=== PATIENT | male | born 1975 | race African-American/Black ===

== ENCOUNTER 2017-09-16 18:16 | Emergency (ER) | payer MEDICAID ==
[~2017-09-16] VITALS: Ht 182.9 cm; Wt 84.1 kg
[~2017-09-16 18:16] MED LIST: DIVA-78 PO; LITH300C3 PO; RISP3 PO
[2017-09-16] MEDS ORDERED: KETOROLAC TROMETHAMINE 30 MG/ML VIAL IM ONE (19:00)
[2017-09-16 19:29] VITALS: BP 137/82
== END 2017-09-16 19:34 | disposition home or self-care (01) ==
LOC: EMS 18:16
DX: T23.162A Burn of first degree of back of left hand, initial encounter (principal); T21.12XA Burn of first degree of abdominal wall, initial encounter; T31.0 Burns involving less than 10% of body surface; F17.210 Nicotine dependence, cigarettes, uncomplicated; F12.10 Cannabis abuse, uncomplicated; X12.XXXA Contact with other hot fluids, initial encounter; Y93.89 Activity, other specified; Y92.89 Other specified places as the place of occurrence of the external cause; Y99.8 Other external cause status
CPT/HCPCS: 96372; 99283; J1885

== ENCOUNTER 2017-10-10 02:18 | Emergency (ER) | payer MEDICAID | END 2017-10-10 03:01 | disposition left against medical advice (07) | LOC: EMS 02:19 | DX: Z00.8 Encounter for other general examination (principal); Z53.21 Procedure and treatment not carried out due to patient leaving prior to being seen by health care provider ==

== ENCOUNTER 2017-11-08 11:14 | Emergency (ER) | payer MEDICAID ==
[~2017-11-08] VITALS: Ht 182.9 cm; Wt 79.5 kg
[2017-11-08 12:32] LABS: BASOPHILS % (AUTO) 0.5 % (0.0-2.0); EOSINOPHILS % (AUTO) 0.6 % (1.0-6.0); HEMATOCRIT 37.1 % (41-53); HEMOGLOBIN 12.2 g/dL (13.5-17.5); LYMPHOCYTES # (AUTO) 2.8 K/uL (1.0-4.8); LYMPHOCYTES % (AUTO) 29.5 % (22.0-44.0); MEAN CORPUSCULAR HEMOGLOBIN 31.3 pg (26.0-34.0); MEAN CORPUSCULAR HGB CONC 32.8 G/dL (31.0-37.0); MEAN CORPUSCULAR VOLUME 95 fL (80-100); MONOCYTES # (AUTO) 0.6 K/uL (0.1-1.0); MONOCYTES % (AUTO) 5.9 % (2.0-9.0); NEUTROPHILS % (AUTO) 63.5 % (40.0-70.0); PLATELET COUNT (AUTO) 438 K/uL (150-450); RED BLOOD CELL COUNT(AUTO) 3.89 MIL/uL (4.50-5.90); RED CELL DISTRIBUTION WIDTH 14.8 % (11.5-14.5)
[2017-11-08 12:44] LABS: ANION GAP 9 mmol/L (8-16); CALCIUM, TOTAL 8.9 mg/dL (8.8-10.5); CARBON DIOXIDE 29 mmol/L (22-29); CHLORIDE 103 mmol/L (98-107); CREATININE 1.09 mg/dL (0.60-1.30); GLOMERULAR FILTR. RATE CALC > 60 mL/min (>60); GLUCOSE,RANDOM 141 mg/dL (70-110); POTASSIUM 3.3 mmol/L (3.5-5.1); SODIUM SERUM 141 mmol/L (136-145); UREA NITROGEN, BLOOD 7 mg/dL (7-18)
[2017-11-08 12:54] LABS: ALANINE AMINOTRANSFERASE 45 U/L (12-78); ALKALINE PHOSPHATASE 116 U/L (46-116); ASPARTATE AMINOTRANSFERASE 28 U/L (15-37); BILIRUBIN,TOTAL 0.3 mg/dL (0.1-1.0); TOTAL PROTEIN, SERUM 7.2 g/dL (6.4-8.2)
[2017-11-08 14:41] VITALS: BP 98/71
[2017-11-08] MEDS ORDERED: POTASSIUM CHLORIDE 10% 40 MEQ/30 ML LIQUID UDCUP PO ONE (15:00)
[2017-11-08 15:41] LABS: AMPHET/METH SCREEN,URINE NEGATIVE (NEGATIVE); BARBITURATE SCREEN, URINE NEGATIVE (NEGATIVE); BENZODIAZEPINES SCREEN,URINE NEGATIVE (NEGATIVE); CANNABINOID SCREEN,URINE POSITIVE (NEGATIVE); COCAINE SCREEN,URINE NEGATIVE (NEGATIVE); METHADONE SCREEN, URINE NEGATIVE (NEGATIVE); OPIATE SCREEN,URINE NEGATIVE (NEGATIVE)
[2017-11-08 15:42] LABS: PHENCYCLIDINE SCREEN,URINE NEGATIVE (NEGATIVE)
== END 2017-11-08 15:14 | disposition home or self-care (01) ==
LOC: EMS 11:16
DX: F69 Unspecified disorder of adult personality and behavior (principal); E87.6 Hypokalemia; F20.9 Schizophrenia, unspecified; F12.90 Cannabis use, unspecified, uncomplicated; F17.210 Nicotine dependence, cigarettes, uncomplicated; Z98.890 Other specified postprocedural states; Z88.1 Allergy status to other antibiotic agents; Z91.14 Patient's other noncompliance with medication regimen; Z79.899 Other long term (current) drug therapy
CPT/HCPCS: 36415; 80053; 80307; 85025; 99285; 99406; G0480

== ENCOUNTER 2020-12-10 08:48 | Emergency (ER) | payer MEDICAID ==
[~2020-12-10] VITALS: Ht 182.9 cm; Wt 70.0 kg
[2020-12-10 08:53] VITALS: BP 134/86
[2020-12-10] MEDS ORDERED: IBUPROFEN 600 MG TABLET PO ONE (09:30)
== END 2020-12-10 10:49 | disposition home or self-care (01) ==
LOC: EMS 08:52
DX: S82.141A Displaced bicondylar fracture of right tibia, initial encounter for closed fracture (principal); V49.9XXA Car occupant (driver) (passenger) injured in unspecified traffic accident, initial encounter; Y93.89 Activity, other specified; Y92.488 Other paved roadways as the place of occurrence of the external cause; Y99.8 Other external cause status
CPT/HCPCS: 99284; 73562-TC; 73610-TC; Z7502; Z7610

== ENCOUNTER 2021-05-05 15:44 | Inpatient (IN) | payer MEDICAID ==
[~2021-05-05] VITALS: Ht 185.4 cm; Wt 70.0 kg
[2021-05-05] MEDS ORDERED: PNEUMOCOCCAL VACCINE POLYVALENT 0.5 ML VIAL [PPSV23] IM. ONE (18:45)
[2021-05-05] MEDS ORDERED: ZOLPIDEM TARTRATE 10 MG TABLET PO PRN (18:45)
[2021-05-05] MEDS ORDERED: INFLUENZA VIRUS VACCINE QVS 2021-22 (6MO+)/PF 60 MCG/0.5 ML SYRINGE IM. ONE (19:45)
[2021-05-06] MEDS: LORazepam 2 MG TABLET PO PRN ×4 (02:53→21:08)
[2021-05-06] MEDS ORDERED: DOCUSATE SODIUM 100 MG CAPSULE PO PRN (06:00)
[2021-05-06] MEDS ORDERED: CloNIDine HCL 0.1 MG TABLET PO PRN (06:00)
[2021-05-06] MEDS ORDERED: ACETAMINOPHEN 325 MG TABLET PO PRN (06:00)
[2021-05-06] MEDS ORDERED: BACITRACIN 28 GM OINTMENT TP PRN (06:00)
[2021-05-06] MEDS ORDERED: PETROLATUM,WHITE 28 GM JELLY TP PRN (06:00)
[2021-05-06] MEDS ORDERED: IBUPROFEN 600 MG TABLET PO PRN (06:00)
[2021-05-06] MEDS ORDERED: LOPERAMIDE HCL 2 MG CAPSULE PO PRN (06:00)
[2021-05-06] MEDS ORDERED: OMEPRAZOLE 20 MG CAPSULE PO PRN (06:00)
[2021-05-06] MEDS ORDERED: ONDANSETRON HCL 4 MG TABLET PO PRN (06:00)
[2021-05-06] MEDS ORDERED: ALBUTEROL SULFATE HFA 90 MCG/PUFF 8 GM INHALER IH PRN (06:00)
[2021-05-06] MEDS ORDERED: MAG HYDROX/AL HYDROX/SIMETH ES 30 ML SUSPENSION UDCUP PO PRN (06:00)
[2021-05-06] MEDS ORDERED: MAGNESIUM HYDROXIDE SUSPENSION 30 ML UDCUP PO PRN (06:00)
[2021-05-06] MEDS ORDERED: BENZOCAINE/MENTHOL LOZENGE PO PRN (06:00)
[2021-05-06] MEDS: HALOPERIDOL 5 MG TABLET PO PRN ×2 (08:15→16:35)
[2021-05-06 10:05] VITALS: BP 143/94
[2021-05-06 16:12] VITALS: BP 137/84
[2021-05-06] MEDS: LITHIUM CARBONATE 300 MG CAPSULE PO SCH (16:35)
[2021-05-06] MEDS: RisperiDONE 3 MG TABLET PO SCH (16:35)
[2021-05-06] MEDS: DIVALPROEX SODIUM 500 MG DR TABLET PO SCH (16:35)
[2021-05-07 04:21] VITALS: BP 112/73
[2021-05-07] MEDS: LORazepam 2 MG TABLET PO PRN ×4 (04:32→20:27)
[2021-05-07] MEDS: HALOPERIDOL 5 MG TABLET PO PRN ×4 (04:33→20:27)
[2021-05-07 08:06] VITALS: BP 138/86
[2021-05-07] MEDS: LITHIUM CARBONATE 300 MG CAPSULE PO SCH ×2 (08:37→16:20)
[2021-05-07] MEDS: RisperiDONE 3 MG TABLET PO SCH ×2 (08:37→16:20)
[2021-05-07] MEDS: DIVALPROEX SODIUM 500 MG DR TABLET PO SCH ×2 (08:37→16:20)
[2021-05-07 16:23] VITALS: BP 145/104
[2021-05-07 18:47] VITALS: BP 129/81
[2021-05-08 00:26] VITALS: BP 134/84
[2021-05-08] MEDS: RisperiDONE 3 MG TABLET PO SCH ×2 (08:31→17:00)
[2021-05-08] MEDS: DIVALPROEX SODIUM 500 MG DR TABLET PO SCH ×2 (08:31→17:00)
[2021-05-08] MEDS: LITHIUM CARBONATE 300 MG CAPSULE PO SCH ×2 (08:31→17:00)
[2021-05-08 08:32] VITALS: BP 140/76
[2021-05-08 16:15] VITALS: BP 115/83
[2021-05-09 03:27] VITALS: BP 110/74
[2021-05-09 08:36] VITALS: BP 122/68
[2021-05-09] MEDS: LITHIUM CARBONATE 300 MG CAPSULE PO SCH ×2 (08:42→16:58)
[2021-05-09] MEDS: RisperiDONE 3 MG TABLET PO SCH ×2 (08:42→16:58)
[2021-05-09] MEDS: DIVALPROEX SODIUM 500 MG DR TABLET PO SCH ×2 (08:42→16:58)
[2021-05-09] MEDS: NICOTINE 14 MG/24 HOUR PATCH TD SCH (10:08)
[2021-05-09 16:29] VITALS: BP 116/74
[2021-05-10 05:42] VITALS: BP 118/74
[2021-05-10 07:14] LABS: BASOPHILS % (AUTO) 0.7 % (0.0-2.0); EOSINOPHILS % (AUTO) 2.6 % (1.0-6.0); HEMATOCRIT 41.6 % (41-53); HEMOGLOBIN 13.9 g/dL (13.5-17.5); LYMPHOCYTES # (AUTO) 2.7 K/uL (1.0-4.8); LYMPHOCYTES % (AUTO) 32.5 % (22.0-44.0); MEAN CORPUSCULAR HGB CONC 33.5 G/dL (31.0-37.0); MEAN CORPUSCULAR VOLUME 90 fL (80-100); MONOCYTES # (AUTO) 0.8 K/uL (0.1-1.0); NEUTROPHILS # (AUTO) 4.6 K/uL (1.8-7.7); NEUTROPHILS % (AUTO) 55.2 % (40.0-70.0); PLATELET COUNT (AUTO) 402 K/uL (150-450); RED BLOOD CELL COUNT(AUTO) 4.63 MIL/uL (4.50-5.90); RED CELL DISTRIBUTION WIDTH 14.8 % (11.5-14.5)
[2021-05-10 07:30] LABS: HEMOGLOBIN A1C 5.9 % (3.8-5.6)
[2021-05-10 07:40] LABS: ALANINE AMINOTRANSFERASE 76 U/L (12-78); ALBUMIN 3.5 g/dL (3.4-5.0); ALKALINE PHOSPHATASE 141 U/L (46-116); ANION GAP 11 mmol/L (8-16); ASPARTATE AMINOTRANSFERASE 36 U/L (15-37); BILIRUBIN,TOTAL 0.3 mg/dL (0.1-1.0); CALCIUM, TOTAL 9.8 mg/dL (8.8-10.5); CARBON DIOXIDE 28 mmol/L (22-29); CHLORIDE 104 mmol/L (98-107); CHOL/HDL RATIO 3.6 (4.2-7.3); CHOLESTEROL 148 mg/dL (131-200); CREATININE 1.08 mg/dL (0.60-1.30); FREE T4 (FREE THYROXINE) 0.88 ng/dL (0.76-1.46); GLOMERULAR FILTR. RATE CALC > 60 mL/min (>60); GLUCOSE,RANDOM 89 mg/dL (70-110); HDL CHOLESTEROL 41 mg/dL (40-60); LDL CHOL (CALC.) 88 mg/dL (0-130); POTASSIUM 4.8 mmol/L (3.5-5.1); SODIUM SERUM 143 mmol/L (136-145); THYROID STIMULATING HORMONE 1.93 uIU/mL (0.36-3.74); TOTAL PROTEIN, SERUM 8.4 g/dL (6.4-8.2); TRIGLYCERIDES 95 mg/dL (15-150); UREA NITROGEN, BLOOD 16 mg/dL (7-18)
[2021-05-10 08:33] VITALS: BP 116/70
[2021-05-10] MEDS: LITHIUM CARBONATE 300 MG CAPSULE PO SCH (08:46)
[2021-05-10] MEDS: RisperiDONE 3 MG TABLET PO SCH (08:46)
[2021-05-10] MEDS: DIVALPROEX SODIUM 500 MG DR TABLET PO SCH (08:46)
[2021-05-10] MEDS: NICOTINE 14 MG/24 HOUR PATCH TD SCH (08:58)
[2021-05-10] MEDS ORDERED: RISP3TAB35 PO (13:50)
[2021-05-10] MEDS ORDERED: LITH300C3 PO ×2 (13:50→16:02)
[2021-05-10] MEDS ORDERED: DIVA-112 PO ×2 (13:50→16:02)
[2021-05-10] MEDS ORDERED: RISP3TAB63 PO (16:02)
== END 2021-05-10 14:36 | disposition home or self-care (01) | DRG 750 ==
LOC: B3A 18:39
PROVIDERS: ADMIT Psychiatry & Neurology Psychiatry; ATTEND Psychiatry & Neurology Psychiatry
DX: F20.0 Paranoid schizophrenia (principal); F12.90 Cannabis use, unspecified, uncomplicated; G47.00 Insomnia, unspecified; F17.200 Nicotine dependence, unspecified, uncomplicated; Z56.0 Unemployment, unspecified; Z72.89 Other problems related to lifestyle; Z71.41 Alcohol abuse counseling and surveillance of alcoholic; Z71.51 Drug abuse counseling and surveillance of drug abuser; Z71.6 Tobacco abuse counseling; Z28.21 Immunization not carried out because of patient refusal
CPT/HCPCS: 80053; 80061; 83036; 84439; 84443; 85025

== ENCOUNTER 2021-08-23 16:29 | Inpatient (IN) | payer MEDICAID, OTHER ==
[~2021-08-23] VITALS: Ht 185.4 cm; Wt 82.6 kg
[~2021-08-23 16:29] MED LIST changes: +DIVA-112 PO; -DIVA-78 PO; -RISP3 PO; +RISP3TAB35 PO; +RISP3TAB63 PO
[2021-08-23 17:07] LABS: BASOPHILS % (AUTO) 0.6 % (0.0-2.0); HEMATOCRIT 34.6 % (41-53); HEMOGLOBIN 11.4 g/dL (13.5-17.5); LYMPHOCYTES # (AUTO) 1.5 K/uL (1.0-4.8); LYMPHOCYTES % (AUTO) 20.5 % (22.0-44.0); MEAN CORPUSCULAR HEMOGLOBIN 30.4 pg (26.0-34.0); MEAN CORPUSCULAR VOLUME 92 fL (80-100); MONOCYTES # (AUTO) 0.5 K/uL (0.1-1.0); MONOCYTES % (AUTO) 6.6 % (2.0-9.0); NEUTROPHILS # (AUTO) 4.1 K/uL (1.8-7.7); PLATELET COUNT (AUTO) 329 K/uL (150-450); RED BLOOD CELL COUNT(AUTO) 3.75 MIL/uL (4.50-5.90); RED CELL DISTRIBUTION WIDTH 15.3 % (11.5-14.5)
[2021-08-23 17:24] LABS: ANION GAP 9 mmol/L (8-16); CALCIUM, TOTAL 9.5 mg/dL (8.8-10.5); CARBON DIOXIDE 27 mmol/L (22-29); CHLORIDE 103 mmol/L (98-107); CREATININE 1.06 mg/dL (0.60-1.30); GLOMERULAR FILTR. RATE CALC > 60 mL/min (>60); GLUCOSE,RANDOM 175 mg/dL (70-110); POTASSIUM 3.1 mmol/L (3.5-5.1); SODIUM SERUM 139 mmol/L (136-145); UREA NITROGEN, BLOOD 15 mg/dL (7-18)
[2021-08-23 17:29] LABS: ALANINE AMINOTRANSFERASE 36 U/L (12-78); ALBUMIN 3.7 g/dL (3.4-5.0); ALKALINE PHOSPHATASE 110 U/L (46-116); ASPARTATE AMINOTRANSFERASE 19 U/L (15-37); BILIRUBIN,TOTAL 0.3 mg/dL (0.1-1.0); EOSINOPHILS % (AUTO) 17.3 % (1.0-6.0); TOTAL PROTEIN, SERUM 7.4 g/dL (6.4-8.2)
[2021-08-23] MEDS ORDERED: DiphenhydrAMINE HCL 50 MG/ML VIAL IM ONE (21:45)
[2021-08-23] MEDS ORDERED: HALOPERIDOL LACTATE 5 MG/ML VIAL IM ONE (21:45)
[2021-08-23] MEDS ORDERED: LORazepam 2 MG/ML VIAL IM ONE (21:45)
[2021-08-23] MEDS ORDERED: ZOLPIDEM TARTRATE 10 MG TABLET PO PRN (23:00)
[2021-08-23 23:15] LABS: COVID AG,FIA SOURCE NASAL SWAB
[2021-08-24] MEDS ORDERED: DiphenhydrAMINE HCL 50 MG/ML VIAL IM ONE (07:00)
[2021-08-24] MEDS ORDERED: LORazepam 2 MG/ML VIAL IM ONE (07:00)
[2021-08-24] MEDS ORDERED: HALOPERIDOL LACTATE 5 MG/ML VIAL IM ONE (07:00)
[2021-08-24 07:04] LABS: APPEARANCE,URINE CLEAR (CLEAR); BILIRUBIN,URINE NEGATIVE (NEGATIVE); GLUCOSE, URINE (UA) NEGATIVE (NEGATIVE); KETONES,URINE NEGATIVE (NEGATIVE); LEUKOCYTE ESTERASE ,URINE NEGATIVE (NEGATIVE); NITRATE,URINE NEGATIVE (NEGATIVE); OCCULT BLOOD,URINE NEGATIVE (NEGATIVE); PROTEIN,URINE TRACE mg/dL (NEGATIVE); SPECIFIC GRAVITIY, URINE 1.024 (1.003-1.030)
[2021-08-24 07:10] LABS: AMPHET/METH SCREEN,URINE POSITIVE (NEGATIVE); BARBITURATE SCREEN, URINE NEGATIVE (NEGATIVE); BENZODIAZEPINES SCREEN,URINE POSITIVE (NEGATIVE); CANNABINOID SCREEN,URINE POSITIVE (NEGATIVE); COCAINE SCREEN,URINE NEGATIVE (NEGATIVE); METHADONE SCREEN, URINE NEGATIVE (NEGATIVE); OPIATE SCREEN,URINE NEGATIVE (NEGATIVE)
[2021-08-24 07:11] LABS: PHENCYCLIDINE SCREEN,URINE POSITIVE (NEGATIVE)
[2021-08-24] MEDS ORDERED: GuaiFENesin/D-METHORPHAN [SUGAR-FREE] 200-20MG/10 ML SYRUP UDCUP PO PRN (14:30)
[2021-08-24] MEDS ORDERED: PROMETHAZINE HCL 25 MG TABLET PO PRN (14:30)
[2021-08-24] MEDS ORDERED: MAGNESIUM HYDROXIDE SUSPENSION 30 ML UDCUP PO PRN (14:30)
[2021-08-24] MEDS ORDERED: LOPERAMIDE HCL 2 MG CAPSULE PO PRN (14:30)
[2021-08-24] MEDS ORDERED: MAG HYDROX/AL HYDROX/SIMETH ES 30 ML SUSPENSION UDCUP PO PRN (14:30)
[2021-08-24] MEDS ORDERED: ACETAMINOPHEN 325 MG TABLET PO PRN (14:30)
[2021-08-24] MEDS ORDERED: TUBERCULIN, PURIFIED PROTEIN DERIVATIVE 5 TU/0.1 ML SYRINGE ID ONE (14:30)
[2021-08-24 16:35] VITALS: BP 136/72
[2021-08-24] MEDS: THIAMINE 100 MG TABLET PO SCH (16:46)
[2021-08-24] MEDS: OLANZapine 5 MG RAPDIS TABLET PO SCH (21:00)
[2021-08-24] MEDS: MELATONIN 5 MG TABLET PO SCH (21:00)
[2021-08-24] MEDS: DIVALPROEX SODIUM 500 MG ER TABLET PO SCH (21:00)
[2021-08-25 00:51] VITALS: BP 131/76
[2021-08-25 06:36] VITALS: BP 112/69
[2021-08-25] MEDS ORDERED: POTASSIUM CHLORIDE 20 MEQ ER TABLET PO ONE ×2 (07:15→17:00)
[2021-08-25] MEDS: NALTREXONE HCL 50 MG TABLET PO SCH (08:05)
[2021-08-25] MEDS: MULTIVITAMINS WITH MINERALS, THERAPEUTIC TABLET PO SCH (08:05)
[2021-08-25] MEDS: FOLIC ACID 1 MG TABLET PO SCH (08:05)
[2021-08-25] MEDS: OMEGA-3/DHA/EPA/FISH OIL 1,000 MG CAPSULE PO SCH (08:05)
[2021-08-25] MEDS: THIAMINE 100 MG TABLET PO SCH ×2 (08:05→16:40)
[2021-08-25] MEDS: LORazepam 2 MG TABLET PO PRN ×2 (10:39→21:03)
[2021-08-25] MEDS: HALOPERIDOL 5 MG TABLET PO PRN (10:39)
[2021-08-25] MEDS: HydrOXYzine PAMOATE 50 MG CAPSULE PO PRN (16:40)
[2021-08-25 17:07] VITALS: BP 132/97
[2021-08-25] MEDS: MELATONIN 5 MG TABLET PO SCH (21:02)
[2021-08-25] MEDS: OLANZapine 5 MG RAPDIS TABLET PO SCH (21:02)
[2021-08-25] MEDS: DIVALPROEX SODIUM 500 MG ER TABLET PO SCH (21:02)
[2021-08-26 03:34] VITALS: BP 149/74
[2021-08-26 08:07] VITALS: BP 142/72
[2021-08-26] MEDS: OMEGA-3/DHA/EPA/FISH OIL 1,000 MG CAPSULE PO SCH (09:00)
[2021-08-26] MEDS ORDERED: POTASSIUM CHLORIDE 8 MEQ ER TABLET PO ONE (09:00)
[2021-08-26] MEDS: MULTIVITAMINS WITH MINERALS, THERAPEUTIC TABLET PO SCH (09:00)
[2021-08-26] MEDS: FOLIC ACID 1 MG TABLET PO SCH (09:00)
[2021-08-26] MEDS: NALTREXONE HCL 50 MG TABLET PO SCH (09:00)
[2021-08-26] MEDS: THIAMINE 100 MG TABLET PO SCH ×3 (09:00→17:47)
[2021-08-26 16:38] VITALS: BP 127/87
[2021-08-26] MEDS: HydrOXYzine PAMOATE 50 MG CAPSULE PO PRN (17:48)
[2021-08-26] MEDS: LORazepam 2 MG TABLET PO PRN (17:48)
[2021-08-26] MEDS: HALOPERIDOL 5 MG TABLET PO PRN (17:48)
[2021-08-26] MEDS ORDERED: OLANZapine 10 MG RAPDIS TABLET PO SCH (21:00)
[2021-08-26] MEDS: DIVALPROEX SODIUM 500 MG ER TABLET PO SCH (21:16)
[2021-08-26] MEDS: MELATONIN 5 MG TABLET PO SCH (21:16)
[2021-08-27] MEDS: THIAMINE 100 MG TABLET PO SCH ×2 (09:00→17:00)
[2021-08-27] MEDS: MULTIVITAMINS WITH MINERALS, THERAPEUTIC TABLET PO SCH (09:00)
[2021-08-27] MEDS: NALTREXONE HCL 50 MG TABLET PO SCH (09:00)
[2021-08-27] MEDS: OMEGA-3/DHA/EPA/FISH OIL 1,000 MG CAPSULE PO SCH (09:00)
[2021-08-27] MEDS: FOLIC ACID 1 MG TABLET PO SCH (09:00)
[2021-08-27] MEDS ORDERED: PALIPERIDONE PALMITATE 234 MG/1.5 ML SYRINGE IM ONE (13:45)
[2021-08-27 16:13] VITALS: BP 114/66
[2021-08-27] MEDS: LORazepam 2 MG TABLET PO PRN (19:23)
[2021-08-27] MEDS: HALOPERIDOL 5 MG TABLET PO PRN (19:24)
[2021-08-27] MEDS: HydrOXYzine PAMOATE 50 MG CAPSULE PO PRN (19:25)
[2021-08-27] MEDS: DIVALPROEX SODIUM 500 MG ER TABLET PO SCH (20:26)
[2021-08-27] MEDS: MELATONIN 5 MG TABLET PO SCH (20:26)
[2021-08-28] MEDS: HALOPERIDOL 5 MG TABLET PO PRN (09:00)
[2021-08-28] MEDS: NALTREXONE HCL 50 MG TABLET PO SCH (09:00)
[2021-08-28] MEDS: LORazepam 2 MG TABLET PO PRN (09:00)
[2021-08-28] MEDS: MULTIVITAMINS WITH MINERALS, THERAPEUTIC TABLET PO SCH (09:00)
[2021-08-28] MEDS: OMEGA-3/DHA/EPA/FISH OIL 1,000 MG CAPSULE PO SCH (09:00)
[2021-08-28] MEDS: THIAMINE 100 MG TABLET PO SCH ×2 (09:01→16:28)
[2021-08-28] MEDS: FOLIC ACID 1 MG TABLET PO SCH (09:01)
[2021-08-28 16:09] VITALS: BP 140/94
[2021-08-28] MEDS: OLANZapine 10 MG RAPDIS TABLET PO SCH (20:42)
[2021-08-28] MEDS: DIVALPROEX SODIUM 500 MG ER TABLET PO SCH (20:43)
[2021-08-28] MEDS: MELATONIN 5 MG TABLET PO SCH (20:43)
[2021-08-29 00:20] VITALS: BP 135/90
[2021-08-29 07:08] LABS: HEMOGLOBIN A1C 5.7 % (3.8-5.6)
[2021-08-29 07:22] LABS: ANION GAP 8 mmol/L (8-16); CALCIUM, TOTAL 9.3 mg/dL (8.8-10.5); CARBON DIOXIDE 28 mmol/L (22-29); CHLORIDE 103 mmol/L (98-107); CHOL/HDL RATIO 2.6 (4.2-7.3); CHOLESTEROL 129 mg/dL (131-200); CREATININE 0.91 mg/dL (0.60-1.30); FREE T4 (FREE THYROXINE) 1.27 ng/dL (0.76-1.46); GLUCOSE,RANDOM 90 mg/dL (70-110); HDL CHOLESTEROL 49 mg/dL (40-60); LDL CHOL (CALC.) 70 mg/dL (0-130); POTASSIUM 3.9 mmol/L (3.5-5.1); SODIUM SERUM 139 mmol/L (136-145); THYROID STIMULATING HORMONE 1.63 uIU/mL (0.36-3.74); TRIGLYCERIDES 50 mg/dL (15-150); UREA NITROGEN, BLOOD 11 mg/dL (7-18); VALPROIC ACID 117 mcg/mL (50-100)
[2021-08-29 07:23] LABS: GLOMERULAR FILTR. RATE CALC > 60 mL/min (>60)
[2021-08-29 08:13] VITALS: BP 121/64
[2021-08-29] MEDS: LORazepam 2 MG TABLET PO PRN ×2 (08:57→17:00)
[2021-08-29] MEDS: MULTIVITAMINS WITH MINERALS, THERAPEUTIC TABLET PO SCH (08:57)
[2021-08-29] MEDS: NALTREXONE HCL 50 MG TABLET PO SCH (08:57)
[2021-08-29] MEDS: OMEGA-3/DHA/EPA/FISH OIL 1,000 MG CAPSULE PO SCH (08:57)
[2021-08-29] MEDS: FOLIC ACID 1 MG TABLET PO SCH (08:57)
[2021-08-29] MEDS: THIAMINE 100 MG TABLET PO SCH ×2 (08:57→16:29)
[2021-08-29 16:10] VITALS: BP 120/77
[2021-08-29] MEDS: MELATONIN 5 MG TABLET PO SCH (20:21)
[2021-08-29] MEDS: OLANZapine 10 MG RAPDIS TABLET PO SCH (20:21)
[2021-08-29] MEDS: DIVALPROEX SODIUM 500 MG ER TABLET PO SCH (20:21)
[2021-08-30 05:14] VITALS: BP 119/77
[2021-08-30] MEDS: OMEGA-3/DHA/EPA/FISH OIL 1,000 MG CAPSULE PO SCH (08:50)
[2021-08-30] MEDS: MULTIVITAMINS WITH MINERALS, THERAPEUTIC TABLET PO SCH (08:50)
[2021-08-30] MEDS: THIAMINE 100 MG TABLET PO SCH ×2 (08:51→17:15)
[2021-08-30] MEDS: NALTREXONE HCL 50 MG TABLET PO SCH (08:51)
[2021-08-30] MEDS: FOLIC ACID 1 MG TABLET PO SCH (08:51)
[2021-08-30 09:20] VITALS: BP 128/80
[2021-08-30 16:15] VITALS: BP 115/77
[2021-08-30] MEDS: LORazepam 2 MG TABLET PO PRN (17:15)
[2021-08-30] MEDS: HALOPERIDOL 5 MG TABLET PO PRN (17:15)
[2021-08-30] MEDS: OLANZapine 10 MG RAPDIS TABLET PO SCH (20:17)
[2021-08-30] MEDS: MELATONIN 5 MG TABLET PO SCH (20:17)
[2021-08-30] MEDS: DIVALPROEX SODIUM 500 MG ER TABLET PO SCH (20:17)
[2021-08-31 04:30] VITALS: BP 123/78
[2021-08-31 08:17] VITALS: BP 130/82
[2021-08-31] MEDS: MULTIVITAMINS WITH MINERALS, THERAPEUTIC TABLET PO SCH (08:32)
[2021-08-31] MEDS: THIAMINE 100 MG TABLET PO SCH ×2 (08:32→16:43)
[2021-08-31] MEDS: OMEGA-3/DHA/EPA/FISH OIL 1,000 MG CAPSULE PO SCH (08:32)
[2021-08-31] MEDS: NALTREXONE HCL 50 MG TABLET PO SCH (08:32)
[2021-08-31] MEDS: FOLIC ACID 1 MG TABLET PO SCH (08:32)
[2021-08-31] MEDS ORDERED: PALIPERIDONE PALMITATE 156 MG/ML SYRINGE IM ONE (09:00)
[2021-08-31 16:14] VITALS: BP 124/70
[2021-08-31] MEDS: HALOPERIDOL 5 MG TABLET PO PRN (16:43)
[2021-08-31] MEDS: LORazepam 2 MG TABLET PO PRN (16:43)
[2021-08-31] MEDS: MELATONIN 5 MG TABLET PO SCH (20:35)
[2021-08-31] MEDS: DIVALPROEX SODIUM 500 MG ER TABLET PO SCH (20:35)
[2021-08-31] MEDS: OLANZapine 10 MG RAPDIS TABLET PO SCH (20:35)
[2021-09-01] MEDS ORDERED: DIVA-80 PO (03:27)
[2021-09-01] MEDS ORDERED: NALT50TA PO (03:27)
[2021-09-01] MEDS ORDERED: MELA5TAB40 PO (03:27)
[2021-09-01] MEDS ORDERED: OMEG-108 PO (03:27)
[2021-09-01] MEDS ORDERED: OLAN10TA26 PO (03:27)
[2021-09-01 05:27] VITALS: BP 143/98
[2021-09-01 08:03] VITALS: BP 100/67
[2021-09-01] MEDS: THIAMINE 100 MG TABLET PO SCH (08:29)
[2021-09-01] MEDS: FOLIC ACID 1 MG TABLET PO SCH (08:29)
[2021-09-01] MEDS: MULTIVITAMINS WITH MINERALS, THERAPEUTIC TABLET PO SCH (08:29)
[2021-09-01] MEDS: NALTREXONE HCL 50 MG TABLET PO SCH (08:29)
[2021-09-01] MEDS: OMEGA-3/DHA/EPA/FISH OIL 1,000 MG CAPSULE PO SCH (08:30)
[2021-09-01 15:26] LABS: GLUCOMETER DEV NAME(LOC) POC.BV
== END 2021-09-01 09:30 | disposition home or self-care (01) | DRG 750 ==
LOC: EMS 16:34 → B3A 08-24 09:33
PROVIDERS: ADMIT Psychiatry & Neurology Psychiatry; ATTEND Psychiatry & Neurology Psychiatry
DX: F25.0 Schizoaffective disorder, bipolar type (principal); Z91.14 Patient's other noncompliance with medication regimen; F16.90 Hallucinogen use, unspecified, uncomplicated; F41.9 Anxiety disorder, unspecified; Z20.822 Contact with and (suspected) exposure to COVID-19; R73.03 Prediabetes; K40.90 Unilateral inguinal hernia, without obstruction or gangrene, not specified as recurrent; Z55.9 Problems related to education and literacy, unspecified; Z79.899 Other long term (current) drug therapy; Z88.8 Allergy status to other drugs, medicaments and biological substances; Z59.9 Problem related to housing and economic circumstances, unspecified; Z63.9 Problem related to primary support group, unspecified; Z65.3 Problems related to other legal circumstances; Z88.0 Allergy status to penicillin; Z91.19 Patient's noncompliance with other medical treatment and regimen
CPT/HCPCS: 80048; 80053; 80061; 80164; 81003; 83036; 84439; 84443; 85025; 86592; 99285; G0480; J1200; J1630; J2060; Q9967

== ENCOUNTER 2021-11-21 10:13 | Inpatient (IN) | payer MEDICAID, OTHER ==
[~2021-11-21] VITALS: Ht 185.4 cm; Wt 83.2 kg
[~2021-11-21 10:13] MED LIST changes: -DIVA-112 PO; +DIVA-80 PO; -LITH300C3 PO; +MELA5TAB40 PO; +NALT50TA PO; +OLAN10TA26 PO; +OMEG-135 PO; -RISP3TAB35 PO; -RISP3TAB63 PO
[2021-11-21 11:04] LABS: BASOPHILS % (AUTO) 0.3 % (0.0-2.0); EOSINOPHILS % (AUTO) 13.9 % (1.0-6.0); HEMATOCRIT 34.6 % (41-53); HEMOGLOBIN 11.3 g/dL (13.5-17.5); LYMPHOCYTES % (AUTO) 26.5 % (22.0-44.0); MEAN CORPUSCULAR HEMOGLOBIN 30.7 pg (26.0-34.0); MEAN CORPUSCULAR HGB CONC 32.8 G/dL (31.0-37.0); MEAN CORPUSCULAR VOLUME 94 fL (80-100); MONOCYTES # (AUTO) 0.6 K/uL (0.1-1.0); MONOCYTES % (AUTO) 7.5 % (2.0-9.0); NEUTROPHILS # (AUTO) 3.9 K/uL (1.8-7.7); NEUTROPHILS % (AUTO) 51.8 % (40.0-70.0); PLATELET COUNT (AUTO) 311 K/uL (150-450); RED BLOOD CELL COUNT(AUTO) 3.69 MIL/uL (4.50-5.90); RED CELL DISTRIBUTION WIDTH 14.6 % (11.5-14.5)
[2021-11-21 11:13] LABS: ANION GAP 9 mmol/L (8-16); CALCIUM, TOTAL 8.8 mg/dL (8.8-10.5); CARBON DIOXIDE 26 mmol/L (22-29); CHLORIDE 107 mmol/L (98-107); CREATININE 0.83 mg/dL (0.60-1.30); GLUCOSE,RANDOM 94 mg/dL (70-110); POTASSIUM 3.1 mmol/L (3.5-5.1); SODIUM SERUM 142 mmol/L (136-145); UREA NITROGEN, BLOOD 13 mg/dL (7-18)
[2021-11-21 11:14] LABS: GLOMERULAR FILTR. RATE CALC > 60 mL/min (>60)
[2021-11-21 11:29] LABS: ALANINE AMINOTRANSFERASE 49 U/L (12-78); ALBUMIN 3.3 g/dL (3.4-5.0); ALKALINE PHOSPHATASE 141 U/L (46-116); ASPARTATE AMINOTRANSFERASE 27 U/L (15-37); BILIRUBIN,TOTAL 0.4 mg/dL (0.1-1.0); TOTAL PROTEIN, SERUM 7.1 g/dL (6.4-8.2)
[2021-11-21 11:30] LABS: VALPROIC ACID < 3 mcg/mL (50-100)
[2021-11-21 11:40] LABS: COVID AG,FIA SOURCE NASOPHARYNGEAL
[2021-11-21] MEDS ORDERED: HALOPERIDOL 5 MG TABLET PO PRN (12:00)
[2021-11-21] MEDS ORDERED: ZOLPIDEM TARTRATE 10 MG TABLET PO PRN (12:00)
[2021-11-21] MEDS ORDERED: POTASSIUM CHLORIDE 20 MEQ ER TABLET PO ONE (12:30)
[2021-11-21] MEDS ORDERED: MIDAZOLAM HCL 5 MG/ML VIAL IM ONE (13:00)
[2021-11-21] MEDS ORDERED: DiphenhydrAMINE HCL 50 MG/ML VIAL IM ONE ×2 (13:00→16:45)
[2021-11-21] MEDS ORDERED: HALOPERIDOL LACTATE 5 MG/ML VIAL IM ONE ×2 (13:00→16:45)
[2021-11-21 13:05] LABS: APPEARANCE,URINE CLEAR (CLEAR); BILIRUBIN,URINE NEGATIVE (NEGATIVE); GLUCOSE, URINE (UA) NEGATIVE (NEGATIVE); KETONES,URINE NEGATIVE (NEGATIVE); LEUKOCYTE ESTERASE ,URINE NEGATIVE (NEGATIVE); NITRATE,URINE NEGATIVE (NEGATIVE); OCCULT BLOOD,URINE NEGATIVE (NEGATIVE); PROTEIN,URINE 30-70 mg/dL (NEGATIVE); SPECIFIC GRAVITIY, URINE 1.038 (1.003-1.030)
[2021-11-21 13:08] LABS: AMPHET/METH SCREEN,URINE POSITIVE (NEGATIVE); BARBITURATE SCREEN, URINE NEGATIVE (NEGATIVE); BENZODIAZEPINES SCREEN,URINE POSITIVE (NEGATIVE); CANNABINOID SCREEN,URINE POSITIVE (NEGATIVE); COCAINE SCREEN,URINE NEGATIVE (NEGATIVE); METHADONE SCREEN, URINE NEGATIVE (NEGATIVE); OPIATE SCREEN,URINE NEGATIVE (NEGATIVE)
[2021-11-21 13:09] LABS: PHENCYCLIDINE SCREEN,URINE POSITIVE (NEGATIVE)
[2021-11-21] MEDS ORDERED: LORazepam 2 MG/ML VIAL IM ONE (16:45)
[2021-11-21 20:42] VITALS: BP 122/79
[2021-11-22] MEDS ORDERED: NICOTINE 14 MG/24 HOUR PATCH TD PRN (06:30)
[2021-11-22] MEDS ORDERED: ONDANSETRON HCL 4 MG TABLET PO PRN (06:30)
[2021-11-22] MEDS ORDERED: GuaiFENesin/D-METHORPHAN [SUGAR-FREE] 200-20MG/10 ML SYRUP UDCUP PO PRN (06:30)
[2021-11-22] MEDS ORDERED: ACETAMINOPHEN 325 MG TABLET PO PRN (06:30)
[2021-11-22] MEDS ORDERED: IBUPROFEN 400 MG TABLET PO PRN (06:30)
[2021-11-22] MEDS ORDERED: PETROLATUM,WHITE 28 GM JELLY TP PRN (06:30)
[2021-11-22] MEDS ORDERED: MAG HYDROX/AL HYDROX/SIMETH ES 30 ML SUSPENSION UDCUP PO PRN (06:30)
[2021-11-22] MEDS ORDERED: ALBUTEROL SULFATE HFA 90 MCG/PUFF 8 GM INHALER IH PRN (06:30)
[2021-11-22] MEDS ORDERED: LOPERAMIDE HCL 2 MG CAPSULE PO PRN (06:30)
[2021-11-22] MEDS ORDERED: DOCUSATE SODIUM 100 MG CAPSULE PO PRN (06:30)
[2021-11-22] MEDS ORDERED: CloNIDine HCL 0.1 MG TABLET PO PRN (06:30)
[2021-11-22] MEDS ORDERED: MAGNESIUM HYDROXIDE SUSPENSION 30 ML UDCUP PO PRN (06:30)
[2021-11-22] MEDS: OMEGA-3/DHA/EPA/FISH OIL 1,000 MG CAPSULE PO SCH ×2 (08:07→08:39)
[2021-11-22] MEDS: LORazepam 2 MG TABLET PO PRN (08:07)
[2021-11-22] MEDS: DIVALPROEX SODIUM 500 MG ER TABLET PO SCH (21:00)
[2021-11-22] MEDS: OLANZapine 10 MG TABLET PO SCH (21:00)
[2021-11-22] MEDS: MELATONIN 5 MG TABLET PO SCH (21:00)
[2021-11-22 21:55] VITALS: BP 110/59
[2021-11-23] MEDS ORDERED: LORazepam 2 MG/ML VIAL ONE (00:21)
[2021-11-23] MEDS ORDERED: HALOPERIDOL LACTATE 5 MG/ML VIAL IM ONE (00:30)
[2021-11-23] MEDS ORDERED: LORazepam 2 MG/ML VIAL IM ONE (00:30)
[2021-11-23] MEDS ORDERED: DiphenhydrAMINE HCL 50 MG/ML VIAL IM ONE (00:30)
[2021-11-23] MEDS: OMEGA-3/DHA/EPA/FISH OIL 1,000 MG CAPSULE PO SCH (08:03)
[2021-11-23] MEDS ORDERED: POTASSIUM CHLORIDE 20 MEQ ER TABLET PO ONE (08:30)
[2021-11-23] MEDS: OLANZapine 10 MG TABLET PO SCH ×2 (13:30→20:50)
[2021-11-23 20:01] VITALS: BP 112/62
[2021-11-23] MEDS: DIVALPROEX SODIUM 500 MG ER TABLET PO SCH (20:50)
[2021-11-23] MEDS: MELATONIN 5 MG TABLET PO SCH (20:50)
[2021-11-24] MEDS: OLANZapine 10 MG TABLET PO SCH ×2 (09:00→20:29)
[2021-11-24] MEDS: OMEGA-3/DHA/EPA/FISH OIL 1,000 MG CAPSULE PO SCH (09:00)
[2021-11-24 20:05] VITALS: BP 140/84
[2021-11-24] MEDS: DIVALPROEX SODIUM 500 MG ER TABLET PO SCH (20:28)
[2021-11-24] MEDS: MELATONIN 5 MG TABLET PO SCH (20:28)
[2021-11-25 08:26] VITALS: BP 133/73
[2021-11-25] MEDS: OMEGA-3/DHA/EPA/FISH OIL 1,000 MG CAPSULE PO SCH (08:45)
[2021-11-25] MEDS: OLANZapine 10 MG TABLET PO SCH ×2 (08:46→20:35)
[2021-11-25] MEDS: LORazepam 2 MG TABLET PO PRN (08:46)
[2021-11-25 20:03] VITALS: BP 139/82
[2021-11-25] MEDS: MELATONIN 5 MG TABLET PO SCH (20:35)
[2021-11-25] MEDS: DIVALPROEX SODIUM 500 MG ER TABLET PO SCH (20:35)
[2021-11-26] MEDS: OLANZapine 10 MG TABLET PO SCH (09:00)
[2021-11-26] MEDS: OMEGA-3/DHA/EPA/FISH OIL 1,000 MG CAPSULE PO SCH (09:00)
[2021-11-26 20:27] VITALS: BP 110/75
[2021-11-26] MEDS: DIVALPROEX SODIUM 500 MG ER TABLET PO SCH (20:55)
[2021-11-26] MEDS: MELATONIN 5 MG TABLET PO SCH (20:55)
[2021-11-26] MEDS: OLANZapine 10 MG RAPDIS TABLET PO SCH (20:55)
[2021-11-27 08:06] VITALS: BP 133/73
[2021-11-27] MEDS: MULTIVITAMINS WITH MINERALS, THERAPEUTIC TABLET PO SCH (08:39)
[2021-11-27] MEDS: OLANZapine 10 MG RAPDIS TABLET PO SCH ×2 (08:39→20:27)
[2021-11-27] MEDS: OMEGA-3/DHA/EPA/FISH OIL 1,000 MG CAPSULE PO SCH (08:59)
[2021-11-27 20:04] VITALS: BP 121/84
[2021-11-27] MEDS: MELATONIN 5 MG TABLET PO SCH (20:27)
[2021-11-27] MEDS: DIVALPROEX SODIUM 500 MG ER TABLET PO SCH (20:27)
[2021-11-28] MEDS: MULTIVITAMINS WITH MINERALS, THERAPEUTIC TABLET PO SCH ×2 (08:04→09:00)
[2021-11-28] MEDS: OLANZapine 10 MG RAPDIS TABLET PO SCH ×3 (08:04→20:37)
[2021-11-28] MEDS: OMEGA-3/DHA/EPA/FISH OIL 1,000 MG CAPSULE PO SCH (09:00)
[2021-11-28 20:03] VITALS: BP 143/80
[2021-11-28] MEDS: DIVALPROEX SODIUM 500 MG ER TABLET PO SCH (20:37)
[2021-11-28] MEDS: MELATONIN 5 MG TABLET PO SCH (20:37)
[2021-11-28] MEDS: LORazepam 2 MG TABLET PO PRN (20:37)
[2021-11-29] MEDS: OLANZapine 10 MG RAPDIS TABLET PO SCH ×2 (08:17→20:50)
[2021-11-29] MEDS: MULTIVITAMINS WITH MINERALS, THERAPEUTIC TABLET PO SCH (08:17)
[2021-11-29] MEDS: OMEGA-3/DHA/EPA/FISH OIL 1,000 MG CAPSULE PO SCH (08:17)
[2021-11-29 13:40] VITALS: BP 112/76
[2021-11-29 20:00] VITALS: BP 130/82
[2021-11-29 20:06] LABS: GLUCOMETER DEV NAME(LOC) POC.BV
[2021-11-29] MEDS: MELATONIN 5 MG TABLET PO SCH (20:50)
[2021-11-29] MEDS: DIVALPROEX SODIUM 500 MG ER TABLET PO SCH (20:50)
[2021-11-30] MEDS: OMEGA-3/DHA/EPA/FISH OIL 1,000 MG CAPSULE PO SCH (08:46)
[2021-11-30] MEDS: MULTIVITAMINS WITH MINERALS, THERAPEUTIC TABLET PO SCH (08:47)
[2021-11-30] MEDS: OLANZapine 10 MG RAPDIS TABLET PO SCH ×2 (08:47→20:27)
[2021-11-30 15:41] VITALS: BP 135/79
[2021-11-30] MEDS: DIVALPROEX SODIUM 500 MG ER TABLET PO SCH (20:27)
[2021-11-30] MEDS: MELATONIN 5 MG TABLET PO SCH (20:27)
[2021-12-01] MEDS: OMEGA-3/DHA/EPA/FISH OIL 1,000 MG CAPSULE PO SCH (08:38)
[2021-12-01] MEDS: OLANZapine 10 MG RAPDIS TABLET PO SCH (08:38)
[2021-12-01] MEDS: MULTIVITAMINS WITH MINERALS, THERAPEUTIC TABLET PO SCH (08:38)
[2021-12-01] MEDS ORDERED: OLAN10TA26 PO ×2 (09:48→11:58)
[2021-12-01] MEDS ORDERED: MELA5TAB40 PO (11:58)
[2021-12-01] MEDS ORDERED: DIVA-80 PO (11:58)
[2021-12-01] MEDS ORDERED: OMEG-135 PO (11:58)
== END 2021-12-01 11:44 | disposition left against medical advice (07) | DRG 750 ==
LOC: EMS 10:13 → B3A 14:04
PROVIDERS: ADMIT Psychiatry & Neurology Child & Adolescent Psychiatry; ATTEND Psychiatry & Neurology Child & Adolescent Psychiatry
DX: F20.0 Paranoid schizophrenia (principal); R45.851 Suicidal ideations; Z91.14 Patient's other noncompliance with medication regimen; D64.9 Anemia, unspecified; F15.10 Other stimulant abuse, uncomplicated; F31.9 Bipolar disorder, unspecified; E78.5 Hyperlipidemia, unspecified; E87.6 Hypokalemia; F10.10 Alcohol abuse, uncomplicated; E66.9 Obesity, unspecified; Z20.822 Contact with and (suspected) exposure to COVID-19; F41.9 Anxiety disorder, unspecified; Z59.00 Homelessness unspecified; Z68.24 Body mass index [BMI] 24.0-24.9, adult; Z79.899 Other long term (current) drug therapy; Z88.1 Allergy status to other antibiotic agents
CPT/HCPCS: 80053; 80164; 81003; 85025; 99291; G0480; J1200; J1630; J2060; J2250; Q9967